=== PATIENT | male | born 1960 | race Caucasian/White ===

== ENCOUNTER 2025-01-08 03:47 | Emergency (ER) | payer OTHER ==
[~2025-01-08] VITALS: Ht 160 cm; Wt 55.0 kg
[2025-01-08 03:51] VITALS: BP 120/63; PULSE 83; RESP 16; TEMP 36.9; O2SAT 98
[2025-01-08] MEDS ORDERED: HYDR-4001 MT (05:59)
[2025-01-12] MEDS ORDERED: LIDO-53 TP (15:31)
[2025-01-12] MEDS ORDERED: IBUP-2028 MT (15:31)
== END 2025-01-08 07:04 | disposition home or self-care (01) ==
LOC: ER 03:47
DX: S82.031A Displaced transverse fracture of right patella, initial encounter for closed fracture (principal); M25.512 Pain in left shoulder; R07.89 Other chest pain; J45.909 Unspecified asthma, uncomplicated; V89.2XXA Person injured in unspecified motor-vehicle accident, traffic, initial encounter; Y93.89 Activity, other specified; Y92.410 Unspecified street and highway as the place of occurrence of the external cause; Y99.8 Other external cause status
CPT/HCPCS: 29505; 71101; 73030; 73560; 73590; 93005; 99284